=== PATIENT | female | born 1985 | race Caucasian/White ===

== ENCOUNTER → 2016-06-25 | Outpatient (CLI) | payer BC, MEDICAID ==
[~2016-06-25] MED LIST: FERR-67 PO; IBUP-1547 PO; PREN1TAB73 PO
--- NOTE | 2016-06-25 14:04 | DI ---
Indication: ITS.REASON: M54.2 CERVICALGIA PROCEDURE: US SOFT TISSUE NECK: Encounter: Initial Comparison: None Technique: Grayscale and color Doppler sonographic imaging of the left neck was performed. Findings: Incidentally noted is a small 6 mm hypoechoic left thyroid nodule, likely of no clinical significance. Normal-appearing lymph node with a fatty hilum in the left neck measuring 0.7 cm in short axis dimension. Additional smaller normal-appearing lymph nodes were not measured. No worrisome masses or fluid collection identified. Impression: No acute abnormality seen. .
[2016-06-26 15:04] LABS: ALBUMIN 4.2 G/DL (3.5-5.0); ALBUMIN/GLOBULIN RATIO 1.2 RATIO (1.1-2.2); ALKALINE PHOSPHATASE 118 U/L (38-126); ALT (SGPT) 25 U/L (9-52); ANION GAP 16 MEQ/L (5-15); AST (SGOT) 21 U/L (14-36); BUN/CREATININE RATIO 15 RATIO (6-26); CALCIUM 9.3 MG/DL (8.4-10.2); CHLORIDE 100 MEQ/L (98-107); CO2 - CARBON DIOXIDE 25 MEQ/L (22-30); CREATININE 0.6 MG/DL (0.7-1.2); GLOMERULAR FILTRATION RATE 119; GLUCOSE 57 MG/DL (65-110); POTASSIUM 5.7 MEQ/L (3.6-5); SODIUM 141 MEQ/L (134-144); TOTAL PROTEIN 7.8 G/DL (6.3-8.2)
== END ==
LOC: IMA 13:09
PROVIDERS: ATTEND Family Medicine
DX: M54.2 Cervicalgia (principal); R53.83 Other fatigue
CPT/HCPCS: 36415; 80053; 86060; 86663; 86664; 86665; 86666